=== PATIENT | male | born 1965 | race Caucasian/White ===

== ENCOUNTER → 2022-07-12 09:58 | Outpatient (CLI) | payer OTHER, MEDICAID, SELFPAY ==
[2022-07-12 10:52] LABS: Add Manual Diff / Slide Review NO; Basophils Absolute Auto 0 /uL (0-100); Basophils Percent Auto 0.5 % (0-2); Eosinophils Absolute Auto 200 /uL (0-450); Eosinophils Percent Auto 2.3 % (2-4); Hematocrit 43.2 % (41-53); Hemoglobin 14.6 g/dL (13.5-17.5); Lymphocytes Absolute Auto 2100 /uL (1100-4500); Lymphocytes Percent Auto 21.1 % (25-40); Mean Corpuscular HGB Conc 33.7 % (30-36); Mean Corpuscular Hemoglobin 31.8 PG (26-34); Mean Corpuscular Volume 94.5 fL (80-100); Monocytes Absolute Auto 800 /uL (0-900); Monocytes Percent Auto 7.8 % (3-14); Neutrophils Absolute Auto 6700 /uL (1500-7000); Neutrophils Percent Auto 68.3 % (50-75); Platelet Count 165 X10^3/uL (150-400); Red Blood Cell Count 4.58 X10^6/uL (4.5-5.9); Red Cell Distribution Width 13.2 % (11.6-14.8); White Blood Cell Count 9.8 X10^3/uL (4.5-11.0)
[2022-07-12 11:01] LABS: Hemoglobin A1C% w Est Avg Glu 9.2 % (4.0-6.0)
[2022-07-12 11:09] LABS: Alanine Aminotransferase 24 IU/L (<50); Albumin 4.2 g/dL (3.5-5.0); Albumin Globulin Ratio 1.3 (1.0-2.8); Alkaline Phosphatase 107 U/L (38-126); Aspartate Aminotransferase 26 IU/L (17-59); Bilirubin Total 0.7 mg/dL (0.2-1.3); Blood Urea Nitrogen 17 mg/dL (9-20); Calcium 9.1 mg/dL (8.4-10.2); Carbon Dioxide 28 mmol/L (22-32); Chloride 104 mmol/L (98-107); Cholesterol 209 mg/dL (140-199); Estimated Glomerular Filt Rate > 60 mL/min (>60); Globulin 3.2 g/dL (1.7-4.1); Glucose 179 mg/dL (70-100); HDL Cholesterol 53 mg/dL (40-60); HEMOLYSIS < 15 (0-50); LDL Cholesterol Calculated 142 mg/dL (<100); Potassium 4.7 mmol/L (3.4-5.1); Sodium 138 mmol/L (137-145); Total Protein 7.4 g/dL (6.3-8.2); Triglycerides 70 mg/dL (35-150)
[2022-07-12 11:22] LABS: Creatinine Urine Random 69.2 mg/dL
[2022-07-12 11:39] LABS: Prostate Specific Antigen Scrn 0.453 ng/mL (0.1-4.0)
[2022-07-12 13:52] LABS: Microalbumi Creatinin Ratio Ur 3497.1 ug/mg CR (<30)
== END ==
PROVIDERS: PCP Family Medicine; Referring Provider Family Medicine; Visit Provider Family Medicine
DX: I10 Essential (primary) hypertension (principal); L30.9 Dermatitis, unspecified; R73.9 Hyperglycemia, unspecified; Z12.5 Encounter for screening for malignant neoplasm of prostate
CPT/HCPCS: 36415; 80053; 80061; 82043; 82570; 83036; 84443; 85025; G0103

== ENCOUNTER → 2022-07-23 09:51 | Outpatient (CLI) | payer OTHER, MEDICAID, SELFPAY ==
--- NOTE | 2022-07-23 | DI.CT.S_ITS ---
PROCEDURE: CT CHEST WO CON INDICATIONS: Nicotine dependence, unspecified, uncomplicated TECHNIQUE: Noncontrast 5 mm thick sections acquired from the pulmonary apices to the posterior costophrenic angles. 1 mm lung window, 5 mm thick coronal and sagittal and 7 mm axial MIP reformats were then acquired. For radiation dose reduction, the following was used: automated exposure control, adjustment of mA and/or kV according to patient size. COMPARISON: None. FINDINGS: Image quality: Excellent. Lungs and pleura: There is moderate centrilobular emphysema with an apical predominance. A calcified granuloma is present in the left upper lobe. No suspicious pulmonary nodules or acute airspace opacities. Mediastinum: Heart size is normal. No pericardial effusion. No mediastinal adenopathy by size criteria. Thoracic aorta and central pulmonary arteries are normal in size. Esophagus is normal in caliber. No hiatal hernia. Bones and chest wall: No suspicious bony lesions. No vertebral body compression fractures. No axillary or supraclavicular adenopathy by size criteria. Thyroid gland is unremarkable. Abdomen: Visualized upper abdominal solid organs and bowel loops appear normal in the absence of contrast. IMPRESSION: No suspicious pulmonary nodules or mass lesions. No acute airspace disease. Dictated by: Padmini Burnham M.D. on 07/23/2022 at 12:16 Approved by: Padmini Burnham M.D. on 07/23/2022 at 12:20
== END ==
PROVIDERS: PCP Family Medicine; Referring Provider Family Medicine; Visit Provider Family Medicine
DX: J43.2 Centrilobular emphysema (principal); F17.200 Nicotine dependence, unspecified, uncomplicated
CPT/HCPCS: 71250

== ENCOUNTER → 2022-09-11 09:51 | Outpatient (CLI) | payer OTHER, MEDICAID, SELFPAY ==
--- NOTE | 2022-09-26 16:03 | DIAB.INIT ---
Initial Diabetes Education Assessment Name: Clement Pedro (Sebastian) Date: 09/11/22 Time: 11a-1210p Dx: Type II diabetes Provider: Torin Garciaie presents for initial diabetes education. Recent hgA1c of 9.2 07/2022. Reports he recently found out he had Dm from his oral surgeon. States he has a scheduled procedure, however the surgeon is requiring a HgA1c under 7%. States he has had increased stress recently with the loss of 2 of his 3 pets. Finances and dealing with dental work are contributing factors. Feels he is having a difficult time managing his recent changed demeanor. Feels short tempered at times. Has culinary background. Feels diabetes has ruined his love for food. States he has gone online and to the library to learn about how to manage DM. Feels all sources are confusing because they contradict one another. Recently changed to whole grains, ie brown rice, pasta, bread. Though feels high fiber diet has made him constipated. Has quit eating his favorite food, chips and a soda. If eating out fast food, tries to make better choices, ie grilled chicken sandwich. Poor dentition. Trying to get dentures, financial barriers in insurance coverage and dental options. Overall, Sebastian reports feeling very frustrated. States he has questions for PCP regarding anxiety med. he is not currently on portal. Anthropometrics: Ht: 6' Wt: 178# at PCP today Weight history: reports -10# over one month due to diet changes. Physical Activity: Active with work, cares for a farm. Considering gym membership but more for social aspect. Self-Monitoring Blood Glucose: Plans to pickle cutter meter today. Diabetes Medications: Metformin 1000mg (rx to increase to BID) Farxiga 10mg Pertinent Labs: HgA1c 9.2% 07/2022 Past Medical History: (Last Updated 09/11/22 @ 09:59 by Robert Harkins MD) Hyperlipidemia Hypertension Intervention: This participant was very receptive. Provided appropriate educational handouts. Discussed the following topics: Completed intake assessment. Discussed barriers to care. Brief pathophysiology of type 2 diabetes HgA1c, its correlation to blood glucose numbers, and rationale for goal especially with surgery and recovery Importance of self-monitoring, how often, and when to check. Suggested checking at different times to evaluate meals General recommended servings for carbohydrates at meals and snacks Role of physical activity Stress impact on BG management Signing up for IH portal to contact provider prn Created SMART goals for patient self-care and success. Goals: Start checking FBG and 1-2 hour pc dinner Sign up for IH portal Follow-up: PADDY KENNEDY follow-up in 3-4 weeks Katherine Nguyen RDN, [facility] Certified Diabetes Care and Tobacco Conditioner P: [phone] Thank you for this referral
== END ==
PROVIDERS: PCP Family Medicine; Referring Provider Family Medicine; Visit Provider Family Medicine
DX: E11.9 Type 2 diabetes mellitus without complications (principal); Z79.84 Long term (current) use of oral hypoglycemic drugs; Z71.3 Dietary counseling and surveillance
CPT/HCPCS: G0108

== ENCOUNTER → 2022-10-29 07:54 | Outpatient (CLI) | payer OTHER, MEDICAID, SELFPAY ==
[2022-10-29 08:27] LABS: Hemoglobin A1C% w Est Avg Glu 7.2 % (4.0-6.0)
[2022-10-29 08:53] LABS: Cholesterol 136 mg/dL (140-199); HDL Cholesterol 65 mg/dL (40-60); LDL Cholesterol Calculated 62 mg/dL (<100); Triglycerides 43 mg/dL (35-150)
[2022-10-29 08:54] LABS: Creatinine Urine Random 39.2 mg/dL
[2022-10-29 09:02] LABS: Microalbumi Creatinin Ratio Ur 316.3 ug/mg CR (<30); Microalbumin Urine Random 12.4 mg/dL (0-1.6)
== END ==
PROVIDERS: PCP Family Medicine; Referring Provider Family Medicine; Visit Provider Family Medicine
DX: E11.9 Type 2 diabetes mellitus without complications (principal); E78.5 Hyperlipidemia, unspecified; I10 Essential (primary) hypertension; R80.9 Proteinuria, unspecified
CPT/HCPCS: 36415; 80061; 82043; 82570; 83036

== ENCOUNTER → 2022-11-13 13:27 | Outpatient (CLI) | payer OTHER, MEDICAID, SELFPAY ==
[2022-11-13 14:23] LABS: Hematocrit 40.8 % (41-53); Hemoglobin 13.7 g/dL (13.5-17.5)
[2022-11-13 14:28] LABS: BUN Creatinine Ratio 41.1 (6-22); Blood Urea Nitrogen 37 mg/dL (9-20); Calcium 9.5 mg/dL (8.4-10.2); Carbon Dioxide 27 mmol/L (22-32); Chloride 100 mmol/L (98-107); Estimated Glomerular Filt Rate > 60 mL/min (>60); Glucose 133 mg/dL (70-100); HEMOLYSIS < 15 (0-50); Potassium 4.6 mmol/L (3.4-5.1); Sodium 136 mmol/L (137-145)
[2022-11-13 15:54] LABS: Creatinine Urine Random 27.3 mg/dL; Protein (Total) Urine Random 22 mg/dL (0-12)
[2022-11-13 15:58] LABS: Microalbumin Urine Random 7.4 mg/dL (0-1.6)
--- NOTE | 2022-11-13 16:01 | DIAB.FU ---
Follow-up Diabetes Education Assessment Name: Clement Pedro (Sebastian) Date: 11/13/22 Time: 3-345p Dx: Type II Diabetes Sebastian presents for DM follow-up. States he has made drastic changes to his diet. Mostly on a liquid protein shake diet with one balanced meal at dinner. Brings several protein powders for review today. All are low in CHO 20g or less, protein of 25g or less, sodium 300mg or less per serving. Today he wants to know if this is ok for diabetes. Sees etymology professor and plans to discuss this meal plan at follow-up visit with specialist. In terms of kidney health, current regimen does not seem excessive in protein or sodium. Reports improved numbness in LE. Reports he has completed his dental work and healing. States his last HgA1c for dental procedure was 7.2%, much improved. Current diet is 3 shakes per day and one meal (fish or chx with 1/2c brown rice and veggies). States this is not a cheap diet or particularly enjoyable, but would like to continue for now with consideration for adding lunch as a whole food option. States he has lost 6# since starting this diet and BG have improved. Has questions regarding BG goals and HgA1c. Endorses adequate fiber with shakes, berries, nuts, and seeds. Reports improved regular BM. Denies any dizziness or light headed feeling. Not checking BP at home, but is taking BP meds regularly. Physical Activity: Active with work, cares for a farm. Considering gym membership but more for social aspect. Self-Monitoring Blood Glucose: Checking throughout the day. Reports previous to liquid diet changes BG range 143-168mg/dl. Recently 128-143mg/dl. Diabetes Medications: Metformin 1000mg (rx to increase to BID)- not discussed this visit Farxiga 10mg Pertinent Labs: Reported 7.2% recently HgA1c 9.2% 07/2022 Past Medical History: (Last Updated 09/11/22 @ 09:59 by Robert Harkins MD) Hyperlipidemia Hypertension Intervention: This participant was very receptive. Provided appropriate educational handouts. Discussed the following topics: Recent blood sugar results and trends ADA and AACE goals for BG and HgA1c BP and BG impact on kidney health Importance of consideration for kidney health with supplements/pro shakes Sustainability of diet and future options Review of general nutrition recommendations and current intake Created SMART goals for patient self-care and success. Goals: Start checking FBG and 1-2 hour pc dinner- met Sign up for IH portal - met Discuss current diet with nephrology- new consider adding lunch as whole food option- new Follow-up: PADDY KENNEDY follow-up in 2 months. Overall Sebastian is doing well with BG management. Would like to f/u in 2 months for check-in and potential diet change options. Katherine Nguyen, PADDY, [facility] Certified Diabetes Care and Assistant Football Coach P: [phone] Thank you for this referral
[2022-11-15 04:59] LABS: Complement C3 103 mg/dL (82-167)
[2022-11-15 14:32] LABS: Free Kappa Lt Chains, Serum 26.1 mg/L (3.3-19.4); Free Lambda Lt Chains,Serum 20.8 mg/L (5.7-26.3)
[2022-11-16 03:41] LABS: Complement Total CH50 > 60 U/mL (>41)
[2022-11-16 13:21] LABS: Alpha-1 Globulin, Ur 3.1 % (.); Beta Globulin, Ur 6.1 % (.); Gamma Globulin, Ur 3.6 % (.); M-Spike % Not Observed % (Not Observed); Urine Total Protein 11.1 mg/dL (Not Estab.)
[2022-11-16 16:11] LABS: Albumin 3.7 g/dL (2.9-4.4); Alpha-1-Globulin 0.2 g/dL (0.0-0.4); Alpha-2-Globulin 0.8 g/dL (0.4-1.0); Gamma Globulin 0.9 g/dL (0.4-1.8); Globulin Total 2.7 g/dL (2.2-3.9); Immunoglobulin A, Serum 128 mg/dL (90-386); Immunoglobulin G,Serum 788 mg/dL (603-1613); Immunoglobulin M, Serum 91 mg/dL (20-172); Protein, Total 6.4 g/dL (6.0-8.5)
== END ==
PROVIDERS: PCP Family Medicine; Referring Provider Internal Medicine Nephrology; Visit Provider Internal Medicine Nephrology
DX: I10 Essential (primary) hypertension (principal); E11.22 Type 2 diabetes mellitus with diabetic chronic kidney disease; N18.2 Chronic kidney disease, stage 2 (mild); R80.9 Proteinuria, unspecified; Z79.84 Long term (current) use of oral hypoglycemic drugs; Z71.3 Dietary counseling and surveillance
CPT/HCPCS: 36415; 80048; 82043; 82570; 82784; 83516; 83883; 84155; 84156; 84165; 84166; 85014; 85018; 86160; 86162; 86334; 86335; G0108

== ENCOUNTER → 2023-01-15 09:19 | Outpatient (CLI) | payer OTHER, MEDICAID, SELFPAY ==
--- NOTE | 2023-01-31 08:55 | DIAB.FU ---
Follow-up Diabetes Education Assessment Name: Clement Pedro (Sebastian) Date: 01/15/23 Time: 930-10a Dx: Type II Diabetes Sebastian presents for DM follow-up. Reports no changes to diet. Continues utilizing shakes and lower carb meals to manage DM. Primarily has questions regarding Dm meds today, specifically GLP1 RA oral and injections and other med options. 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 Self-Monitoring Blood Glucose: Reports continued SMBG in goal with readings under 150 mg/dl through the day. Diabetes Medications: Metformin 1000mg Farxiga 10mg Ozempic rx for up to 0.5mg weekly Pertinent Labs: HgA1c 9.2% 07/2022 7.2% 10/2022 Past Medical History: (Last Updated 09/11/22 @ 09:59 by Robert Harkins MD) Hyperlipidemia Hypertension Intervention: This participant was very receptive. Provided appropriate educational handouts. Discussed the following topics: Recent blood sugar results and trends Medication management: different options oral vs injections, affordability, SE, actions Review of general nutrition recommendations and current intake Created SMART goals for patient self-care and success. Goals: Discuss current diet with nephrology- met consider adding lunch as whole food option- in progress Follow-up: PADDY KENNEDY follow-up in Jun due to this [facility] leave. Provided resources for support in the interim. Katherine Nguyen RDN, [facility] Certified Diabetes Care and [employer] [place]ta Setter P: [phone] Thank you for this referral
== END ==
PROVIDERS: PCP Family Medicine; Referring Provider Family Medicine; Visit Provider Family Medicine
DX: E11.9 Type 2 diabetes mellitus without complications (principal); Z79.84 Long term (current) use of oral hypoglycemic drugs; Z79.85 Long-term (current) use of injectable non-insulin antidiabetic drugs; Z71.3 Dietary counseling and surveillance
CPT/HCPCS: G0108

== ENCOUNTER → 2023-05-23 09:54 | Outpatient (CLI) | payer OTHER, MEDICAID, SELFPAY ==
[2023-05-23 10:15] LABS: Hematocrit 39.4 % (41-53); Hemoglobin 13.6 g/dL (13.5-17.5)
[2023-05-23 10:29] LABS: Hemoglobin A1C% w Est Avg Glu 7.4 % (4.0-6.0)
[2023-05-23 10:41] LABS: BUN Creatinine Ratio 31.5 (6-22); Blood Urea Nitrogen 23 mg/dL (9-20); Carbon Dioxide 27 mmol/L (22-32); Chloride 104 mmol/L (98-107); Estimated Glomerular Filt Rate > 60 mL/min (>60); Glucose 164 mg/dL (80-110); HEMOLYSIS < 15 (0-50); Potassium 4.6 mmol/L (3.4-5.1); Sodium 136 mmol/L (137-145)
[2023-05-23 10:51] LABS: Creatinine Urine Random 135.8 mg/dL
[2023-05-23 11:48] LABS: Microalbumi Creatinin Ratio Ur 2724.5 ug/mg CR (<30)
== END ==
PROVIDERS: PCP Family Medicine; Referring Provider Internal Medicine Nephrology; Visit Provider Internal Medicine Nephrology
DX: I10 Essential (primary) hypertension (principal); E11.22 Type 2 diabetes mellitus with diabetic chronic kidney disease; N18.2 Chronic kidney disease, stage 2 (mild); R80.9 Proteinuria, unspecified; E78.5 Hyperlipidemia, unspecified; E11.9 Type 2 diabetes mellitus without complications
CPT/HCPCS: 36415; 80048; 82043; 82570; 83036; 85014; 85018

== ENCOUNTER 2023-10-08 16:56 | Emergency (ER) | payer OTHER, MEDICAID, SELFPAY ==
[2023-10-08] VITALS (7 sets, daily range): BP systolic 100–143; BP diastolic 62–65; PULSE 56–70; RESP 18–20; TEMP 36.7; O2SAT 99–100
[2023-10-08 17:47] LABS: Add Manual Diff / Slide Review NO; Basophils Absolute Auto 0 /uL (0-100); Basophils Percent Auto 0.1 % (0-2); Eosinophils Absolute Auto 0 /uL (0-450); Eosinophils Percent Auto 0.3 % (2-4); Hematocrit 30.5 % (41-53); Hemoglobin 10.5 g/dL (13.5-17.5); Lymphocytes Absolute Auto 700 /uL (1100-4500); Lymphocytes Percent Auto 7.3 % (25-40); Mean Corpuscular HGB Conc 34.4 % (30-36); Mean Corpuscular Hemoglobin 30.6 PG (26-34); Monocytes Absolute Auto 900 /uL (0-900); Monocytes Percent Auto 9.1 % (3-14); Neutrophils Absolute Auto 8000 /uL (1500-7000); Neutrophils Percent Auto 83.2 % (50-75); Platelet Count 217 X10^3/uL (150-400); Red Blood Cell Count 3.43 X10^6/uL (4.5-5.9); Red Cell Distribution Width 12.9 % (11.6-14.8); White Blood Cell Count 9.6 X10^3/uL (4.5-11.0)
[2023-10-08 17:55] LABS: Alanine Aminotransferase 29 IU/L (<50); Albumin 3.3 g/dL (3.5-5.0); Albumin Globulin Ratio 1.1 (1.0-2.8); Alkaline Phosphatase 156 U/L (38-126); Aspartate Aminotransferase 23 IU/L (17-59); BUN Creatinine Ratio 69.2 (6-22); Bilirubin Total 0.4 mg/dL (0.2-1.3); Blood Urea Nitrogen 63 mg/dL (9-20); Calcium 8.5 mg/dL (8.4-10.2); Carbon Dioxide 29 mmol/L (22-32); Chloride 100 mmol/L (98-107); Estimated Glomerular Filt Rate > 60 mL/min (>60); Globulin 2.9 g/dL (1.7-4.1); Glucose 420 mg/dL (80-110); HEMOLYSIS < 15 (0-50); Lipase 90 U/L (23-300); Potassium 4.9 mmol/L (3.4-5.1); Sodium 133 mmol/L (137-145); Total Protein 6.2 g/dL (6.3-8.2)
--- NOTE | 2023-10-08 20:27 | ED_ITS ---
HPI - Recheck/Abnormal Lab/Rx General Chief Complaint: Recheck/Abnormal Lab/Rx Stated Complaint: sent by [facility] Oncology Time Seen by Provider: 10/08/23 20:21 Source: patient Mode of arrival: Ambulatory History of Present Illness HPI narrative: Patient is a 58-year-old male. Receiving chemotherapy and radiation and he was also on steroids. He has no history of diabetes. Had labs drawn today in preparation for a PET scan and it was noted that his glucose was greater than 500. He stated that he was told to come to the emergency department by his oncologist for a ?infusion? he did receive radiation today. He denies any other symptoms. Related Data Home Medications Medication Instructions Recorded Confirmed spironolactone 50 mg tablet 50 mg PO DAILY 12/20/22 06/04/23 Previous Rx's Medication Instructions Recorded glucometer #1 ea 09/11/22 lancets and applicator #100 ea 09/11/22 losartan 50 mg tablet See Rx Instructions .Route 09/11/22 .COMPLEX #180 tabs test strips #100 ea 09/11/22 hydroxyzine HCl 25 mg tablet See Rx Instructions .Route 02/04/23 .COMPLEX #60 tabs atorvastatin 40 mg tablet (Lipitor) 40 mg PO BEDTIME #90 tabs 03/18/23 mirtazapine 15 mg tablet (Remeron) 15 mg PO BEDTIME #60 tabs 04/29/23 semaglutide 7 mg tablet (Rybelsus) 7 mg PO DAILY #90 tabs 06/04/23 metformin 1,000 mg tablet See Rx Instructions .Route 08/07/23 .COMPLEX #180 tabs Allergies Allergy/AdvReac Type Severity Reaction Status Date / Time No Known Drug Allergies Allergy Verified 10/08/23 17:24 Review of Systems Review of Systems ROS Unobtainable: All systems reviewed & are unremarkable except as noted in HPI and below Patient History Medical History Hyperlipidemia Hypertension Family History (Updated 07/30/22 @ 20:53 by Meggan Natarajan) Father Diabetes mellitus Hypertension Hyperlipidemia Mother Diabetes mellitus Social History Smoking Status: Current every day smoker Smoking Status: Current every day smoker Exam Initial Vital Signs Initial Vital Signs: Vital Signs Temperature 98.1 F 10/08/23 17:24 Pulse Rate 67 10/08/23 17:24 Respiratory Rate 18 10/08/23 17:24 Blood Pressure 143/65 H 10/08/23 17:24 Pulse Oximetry 99 10/08/23 17:24 Oxygen Delivery Method Room Air 10/08/23 17:24 Const General: cooperative and comfortable Resp Effort & Inspection: normal respiratory effort Cardio Rate: regular rate Neuro General: patient alert, patient awake and moves all extremities Course Orders Ordered: ED Orders 10/08/23 17:33 Complete Blood Count AUTO DIFF Stat Comprehensive Metabolic Panel Stat Lipase Stat Prothrombin Time INR Stat Discontinued Medications Sodium Chloride (Normal Saline 0.9%) 1,000 mls @ 1,000 mls/hr IV BOLUS ONE Stop: 10/08/23 21:28 Last Infusion: 10/08/23 21:49 Dose: Infused Documented By: Admin: 10/08/23 20:43 Dose: 1,000 mls/hr Documented By: RADHA Ondansetron HCl (Ondansetron 4 Mg/2 Ml Inj) 4 mg IV NOW PRN PRN Reason: Nausea And Vomiting Ondansetron HCl (Ondansetron 4 Mg Odt) 4 mg PO NOW PRN PRN Reason: Nausea And Vomiting Vital Signs Vital signs: Vital Signs - 8 hr 10/08/23 20:44 10/08/23 20:46 10/08/23 20:46 Pulse Rate 68 67 Respiratory Rate Blood Pressure 100/62 Pulse Oximetry 100 99 Oxygen Delivery Method 10/08/23 21:00 10/08/23 21:30 10/08/23 21:45 Pulse Rate 56 L 62 Respiratory Rate Blood Pressure 123/65 Pulse Oximetry 99 99 Oxygen Delivery Method 10/08/23 21:45 10/08/23 21:46 Pulse Rate 64 70 Respiratory Rate 20 Blood Pressure 123/65 Pulse Oximetry 99 99 Oxygen Delivery Method Room Air MDM - Recheck/Abnormal Lab/Rx Lab Data Attestation: I reviewed the patient's lab results. 10/08/23 17:33 10/08/23 17:33 Labs: Lab Results 10/08/23 Range/Units 17:33 WBC 9.6 (4.5-11.0) X10^3/uL RBC 3.43 L (4.5-5.9) X10^6/uL Hgb 10.5 L (13.5-17.5) g/dL Hct 30.5 L (41-53) % MCV 89.0 (80-100) fL MCH 30.6 (26-34) PG MCHC 34.4 (30-36) % RDW 12.9 (11.6-14.8) % Plt Count 217 (150-400) X10^3/uL Neut % (Auto) 83.2 H (50-75) % Lymph % (Auto) 7.3 L (25-40) % [place] % (Auto) 9.1 (3-14) % Eos % (Auto) 0.3 L (2-4) % Baso % (Auto) 0.1 (0-2) % Neut # (Auto) 8000 H (5136-7660) /uL Lymph # (Auto) 700 L (4269-4604) /uL [place] # (Auto) 900 (0-900) /uL Eos # (Auto) 0 (0-450) /uL Baso # (Auto) 0 (0-100) /uL PT 11.0 (9.4-12.5) SECONDS INR 1.0 (0.9-1.3) Sodium 133 L (137-145) mmol/L Potassium 4.9 (3.4-5.1) mmol/L Chloride 100 (98-107) mmol/L Carbon Dioxide 29 (22-32) mmol/L BUN 63 H (9-20) mg/dL Creatinine 0.91 (0.66-1.25) mg/dL Estimated GFR > 60 (>60) mL/min BUN/Creatinine Ratio 69.2 H (6-22) Glucose 420 H (80-110) mg/dL Calcium 8.5 (8.4-10.2) mg/dL Total Bilirubin 0.4 (0.2-1.3) mg/dL AST 23 (17-59) IU/L ALT 29 (<50) IU/L Alkaline Phosphatase 156 H (38-126) U/L Total Protein 6.2 L (6.3-8.2) g/dL Albumin 3.3 L (3.5-5.0) g/dL Globulin 2.9 (1.7-4.1) g/dL Albumin/Globulin Ratio 1.1 (1.0-2.8) Lipase 90 (23-300) U/L MDM Narrative Medical decision making narrative: Patient is hyperglycemic but not in DKA. Tolerating oral intake. I suspect that the hyperglycemia is most likely related to the steroids that he is taking. He did receive fluids here in the ER. There was no indication for admission to the hospital. He would like to wait and talk with his primary doctor and also his oncologist about potentially starting insulin as he was told that maybe he needed to be on this when they started him on steroids. Will discharge patient home to follow-up with his outpatient providers. Discharge Plan Departure Patient Disposition: Home Clinical Impression: Hyperglycemia Instructions: DI for Hyperglycemia -- Adult Activity Restrictions/Additional Instructions: Recommend that you continue to take all of your medications as directed and talk with your oncologist and primary doctor about potentially needing to start on insulin. Return to the emergency department for new or worsening symptoms. Prescriptions: No Action (DME) glucometer See Rx Instructions .Route .MEDSUPPLY Qty: 1 0RF Rx Instructions: As directed (DME) lancets and applicator See Rx Instructions .Route .MEDSUPPLY Qty: 100 5RF Rx Instructions: use to check blood glucose daily (DME) test strips See Rx Instructions .Route .MEDSUPPLY Qty: 100 5RF Rx Instructions: use to check blood glucose daily and as need for feeling of low or high blood glucose. hydroxyzine HCl 25 mg tablet See Rx Instructions .ROUTE .COMPLEX Qty: 60 0RF Dose Instruction: TAKE 1 TABLET BY MOUTH TWICE DAILY NEEDED FOR ANXIETY Rx Instructions: TAKE 1 TABLET BY MOUTH TWICE DAILY NEEDED FOR ANXIETY atorvastatin [Lipitor] 40 mg tablet 40 mg PO BEDTIME Qty: 90 2RF mirtazapine [Remeron] 15 mg tablet 15 mg PO BEDTIME Qty: 60 2RF metformin 1,000 mg tablet See Rx Instructions .ROUTE .COMPLEX Qty: 180 3RF Dose Instruction: TAKE 1 TABLET DAILY FOR 1 WEEK THEN INCREASE TO 2 TABLETS DAILY WITH FOOD. Rx Instructions: 2 TABLETS DAILY WITH FOOD. losartan 50 mg tablet See Rx Instructions .ROUTE .COMPLEX Qty: 180 3RF Dose Instruction: TAKE 1 TABLET BY MOUTH DAILY. Rx Instructions: TAKE 2 TABLETs BY MOUTH DAILY. spironolactone 50 mg tablet 50 mg PO DAILY Rybelsus 7 mg tablet 7 mg PO DAILY Qty: 90 3RF Rx Instructions: A1c not completely managed with current meds. Referrals: Robert Harkins MD [Primary Care Provider] - Stand Alone Forms: Patient Portal/API
[2023-10-08] MEDS: SODIUM CHLORIDE 0.9% 1,000 ML 1000 ML IV (20:43)
== END 2023-10-08 22:06 | disposition home or self-care (01) ==
PROVIDERS: Emergency Medicine; Emergency Provider Emergency Medicine; PCP Family Medicine
DX: R73.9 Hyperglycemia, unspecified (principal)
CPT/HCPCS: 36415; 80053; 83690; 85025; 85610; 99283; 99284

== ENCOUNTER 2023-10-15 14:29 | Emergency (ER) | payer OTHER, MEDICAID, SELFPAY ==
[2023-10-15] VITALS (16 sets, daily range): BP systolic 118–147; BP diastolic 62–78; PULSE 71–90; RESP 14–26; TEMP 36.6–37.4; O2SAT 93–97; BMI 21.2
--- NOTE | 2023-10-15 14:58 | DI.RAD.S_ITS ---
PROCEDURE: XR SOFT TISSUE NECK INDICATIONS: stridor, cancer TECHNIQUE: 2 views of the neck were acquired. COMPARISON: [facility], CT, CT SOFT TISSUE NECK WITH CONTRAST, 07/30/2023, 11:39. FINDINGS: Airway: The airway appears patent. Soft tissues: Prevertebral soft tissues are normal in thickness. The epiglottis is thickened.. No soft tissue gas. Bones: No suspicious bony lesions. Visualized cervical spine is normally aligned. IMPRESSION: Thickened epiglottis. Epiglottitis is not excluded. Dictated by: Jessica Hilario MD, PhD on 10/15/2023 at 15:54 Approved by: Jessica Hilario MD, PhD on 10/15/2023 at 15:55
--- NOTE | 2023-10-15 15:01 | DI.CT.S_ITS ---
PROCEDURE: CT SOFT TISSUE NECK W CON INDICATIONS: stridor, inspiratory; known cancer TECHNIQUE: After the administration of intravenous contrast, 3.0 mm axial sections acquired from the sella to the aortic arch. Additional oblique axial 3.0 mm sections acquired through the pharynx. 3 mm thick coronal and sagittal reformats were generated. For radiation dose reduction, the following was used: automated exposure control. COMPARISON: [facility], CT, CT SOFT TISSUE NECK WITH CONTRAST, 07/30/2023, 11:39. FINDINGS: Image quality: Excellent. Lymph nodes: Prominent bilateral level 2 neck lymph nodes noted which do not meet pathologic size criteria. 0.8 centimeter short axis left level 2 B neck lymph node which demonstrates central necrosis. Vessels: Visualized vasculature appears patent. Neck spaces: The oropharynx and nasopharynx demonstrate no mucosal lesions. Infiltrating mass involving the epiglottis, aryepiglottic folds, laryngeal mucosa and vocal cords decreased in size compared to July 30, 2023 compatible with response to therapy. There is a 1.4 centimeter in diameter fluid collection in the anterior right laryngeal mucosa which lacks peripheral enhancement.Extramucosal spaces appear unremarkable. Glands: The parotid and submandibular glands appear normal. Thyroid gland is normal. Miscellaneous: Visualized brain and orbits appear normal. Lung apices appear clear. Centrilobular emphysema in the visualized lungs. Superficial soft tissues appear normal. Left-sided PICC line. Bones: No suspicious bony lesions. Visualized sinuses and mastoids appear unremarkable. 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 1.4 centimeter fluid collection in the anterior right laryngeal mucosa compatible with tissue necrosis. No lymphadenopathy based on size criteria. 8 millimeter short axis centrally necrotic left level 2 B neck lymph node noted. Metastatic lymphadenopathy not completely excluded. Dictated by: Jessica Hilario MD, PhD on 10/15/2023 at 16:20 Approved by: Jessica Hilario MD, PhD on 10/15/2023 at 16:44
[2023-10-15] MEDS: RACEPINEPHRINE 0.5 ML NEB INH ×2 (15:05→16:58)
[2023-10-15 15:07] LABS: Add Manual Diff / Slide Review NO; Basophils Absolute Auto 0 /uL (0-100); Basophils Percent Auto 0.9 % (0-2); Eosinophils Absolute Auto 0 /uL (0-450); Eosinophils Percent Auto 0.5 % (2-4); Hematocrit 32.7 % (41-53); Hemoglobin 11.2 g/dL (13.5-17.5); Lymphocytes Absolute Auto 400 /uL (1100-4500); Mean Corpuscular HGB Conc 34.3 % (30-36); Mean Corpuscular Hemoglobin 30.9 PG (26-34); Mean Corpuscular Volume 90.1 fL (80-100); Monocytes Absolute Auto 500 /uL (0-900); Monocytes Percent Auto 11.4 % (3-14); Neutrophils Absolute Auto 3400 /uL (1500-7000); Neutrophils Percent Auto 77.2 % (50-75); Platelet Count 115 X10^3/uL (150-400); Red Blood Cell Count 3.63 X10^6/uL (4.5-5.9); Red Cell Distribution Width 13.2 % (11.6-14.8); White Blood Cell Count 4.4 X10^3/uL (4.5-11.0)
[2023-10-15] MEDS: DEXAMETHASONE 10 MG/ML VIAL IV (15:11)
[2023-10-15] MEDS: ALBUTEROL/IPRATROPIUM 3 ML AMPUL INH (15:16)
[2023-10-15 15:19] LABS: Alanine Aminotransferase 24 IU/L (<50); Albumin 3.4 g/dL (3.5-5.0); Albumin Globulin Ratio 1.1 (1.0-2.8); Alkaline Phosphatase 114 U/L (38-126); Aspartate Aminotransferase 25 IU/L (17-59); BUN Creatinine Ratio 54.5 (6-22); Bilirubin Total 0.8 mg/dL (0.2-1.3); Blood Urea Nitrogen 36 mg/dL (9-20); Calcium 8.7 mg/dL (8.4-10.2); Carbon Dioxide 32 mmol/L (22-32); Chloride 101 mmol/L (98-107); Estimated Glomerular Filt Rate > 60 mL/min (>60); Globulin 3.2 g/dL (1.7-4.1); Glucose 196 mg/dL (80-110); HEMOLYSIS < 15 (0-50); Potassium 4.3 mmol/L (3.4-5.1); Sodium 139 mmol/L (137-145); Total Protein 6.6 g/dL (6.3-8.2)
[2023-10-15] MEDS: PIPERACILLIN/TAZO 4.5 GM in SODIUM CHLORIDE 0.9% 100 ML IV (15:20)
--- NOTE | 2023-10-15 15:20 | ED.GENADULT ---
HPI - General Adult General Chief complaint: Shortness of Breath/Dyspnea Stated complaint: difficulty breathing, talking Time Seen by Provider: 10/15/23 14:47 History of Present Illness HPI narrative: 58-year-old male with history of diabetes, hypertension, hyperlipidemia, on chemotherapy and radiation for reported HEENT cancer presents with shortness of breath. Patient notes he was sent from radiation today with shortness of breath but is not sure what kind of cancer he has. He is DNR/DNI. He is very firm about this, fully understanding he could rapidly without airway control. He notes pain in his neck and denies fever. He feels increasingly short of breath in the last several days with difficulty breathing and voice changes. No posterior neck pain, photophobia, headache, chest pain, trismus, drooling or bleeding. He is on oxycodone. I spoke with his Oncologist on phone, Dr. Ellis; he has SCC supraglottic laryngeal cancer. It has progressed to the point that ENT was involved and trach was strictly recommended. He declined this. He has been getting chemo/radiation. He refuses laryngectomy. He is on standing dexamethasone but completely stopped this last week. We are concerned his laryngeal edema is worsening in this setting. Today, he seemed borderline hypotensive, tachycardic in clinic. They agree there is no other family. Oncologist # is [phone]. This patient was seen in a time of substantial ER overcrowding in the setting of understanding. He was seen as quickly as possible by myself in the setting of multiple critically ill patients. Related Data Home Medications Medication Instructions Recorded Confirmed spironolactone 50 mg tablet 50 mg PO DAILY 12/20/22 06/04/23 Previous Rx's Medication Instructions Recorded glucometer #1 ea 09/11/22 losartan 50 mg tablet See Rx Instructions .Route 09/11/22 .COMPLEX #180 tabs hydroxyzine HCl 25 mg tablet See Rx Instructions .Route 02/04/23 .COMPLEX #60 tabs atorvastatin 40 mg tablet (Lipitor) 40 mg PO BEDTIME #90 tabs 03/18/23 mirtazapine 15 mg tablet (Remeron) 15 mg PO BEDTIME #60 tabs 04/29/23 semaglutide 7 mg tablet (Rybelsus) 7 mg PO DAILY #90 tabs 10/24/23 metformin 1,000 mg tablet See Rx Instructions .Route 08/07/23 .COMPLEX #180 tabs blood sugar diagnostic (True #100 strips 10/11/23 Metrix Glucose Test Strip) lancets 33 gauge (TRUEplus Lancets) #100 ea 10/11/23 Allergies Allergy/AdvReac Type Severity Reaction Status Date / Time No Known Drug Allergies Allergy Verified 10/08/23 17:24 Review of Systems Review of Systems Narrative: Constitutional: no fever, no chills Eyes: no visual disturbance, no discharge Ears, Nose, Mouth, Throat: no rhinorrhea, + sore throat Cardiovascular: no chest pain, no palpitations Respiratory: + cough, shortness of breath Gastrointestinal: no abdominal pain, no vomiting, no diarrhea Genitourinary: no dysuria, no hematuria Musculoskeletal: no back pain, no neck stiffness Skin: no rash, no wound Neurological: no focal weakness, no focal numbness Patient History Medical History Hyperlipidemia Hypertension Family History (Updated 07/30/22 @ 20:53 by Meggan Nataarjan) Father Diabetes mellitus Hypertension Hyperlipidemia Mother Diabetes mellitus Social History Smoking Status: Current every day smoker Smoking Status: Current every day smoker tobacco type: cigarettes Substance Use Type: does not use Exam Narrative Exam Narrative: Const: no acute distress, + toxic and cachectic appearing; remains calm, pleasant, speaking in a whisper Eyes: PERRLA, EOMI ENT: uvula midline. He has prominent inspiratory stridor. No pain on palpation of throat. No pus or exudate. No drooling. No trismus. Neck: supple, non-tender Resp: no respiratory distress, clear to auscultation bilaterally Card: regular rate and rhythm, no murmurs Abd: non tender diffusely, no rigidity or rebound or guarding Back: no T or L spine tenderness, no CVA tenderness bilaterally Extrem: no deformities, no swelling bilateral lower extremities Neuro: ANOx4, casing operator 2-12 intact, intact sensation and strength all extremities, normal coordination Skin: no rash, warm and dry Initial Vital Signs Initial Vital Signs: Vital Signs Temperature 99.4 F 10/15/23 14:33 Pulse Rate 90 10/15/23 14:33 Respiratory Rate 18 10/15/23 14:33 Blood Pressure 118/63 10/15/23 14:33 Pulse Oximetry 97 10/15/23 14:33 Oxygen Delivery Method Room Air 10/15/23 14:33 Course Course Course Narrative: This presentation is highly concerning for imminent airway collapse in a patient with known laryngeal cancer who is critically ill. Patient is very clear about his wishes, demonstrated capacity to me, denying any local family, stating he in no way at any time wants to be intubated or have chest compressions. He fully understands he could from this. I am pursuing aggressive workup and treatment with dexamethasone, racemic epinephrine, duo nebs, antibiotics, neck x-ray to be followed by CT, labs and blood cultures and very closely reassessing. I am doing everything I can to help prevent further decompensation. My hope is that he improves on dexamethasone. It is most likely that this stridor is due to his underlying cancer worsening precipitated by stopping steroids recently, though I am giving him broad antibiotics in case of concurrent infection as well. He is neurovascularly intact currently. Chemistry appears grossly baseline. Hyperglycemia noted. CBC with leukopenia in the setting of known chemotherapy, anemia improved from prior, thrombocytopenia present though above 100. Radiology review of imaging below, which I agree with on my independent review: CXR: FINDINGS: Surgical changes and devices: None. Lungs and pleura: Lungs are clear. No pleural effusions or pneumothorax. Mediastinum: Mediastinal contours appear normal. Heart size is normal. Bones and chest wall: No suspicious bony lesions. Overlying soft tissues appear unremarkable. IMPRESSION: No acute cardiopulmonary abnormality is seen. Dictated by: Jessica Hilario MD, PhD on 10/15/2023 at 15:55 Neck XR: FINDINGS: Airway: The airway appears patent. Soft tissues: Prevertebral soft tissues are normal in thickness. The epiglottis is thickened.. No soft tissue gas. Bones: No suspicious bony lesions. Visualized cervical spine is normally aligned. IMPRESSION: Thickened epiglottis. Epiglottitis is not excluded. Dictated by: Jessica Hilario MD, PhD on 10/15/2023 at 15:54 Note this finding in my assessment is more likely related to patient's cancer. Adding vancomycin however. CT: FINDINGS: Image quality: Excellent. Lymph nodes: Prominent bilateral level 2 neck lymph nodes noted which do not meet pathologic size criteria. 0.8 centimeter short axis left level 2 B neck lymph node which demonstrates central necrosis. Vessels: Visualized vasculature appears patent. Neck spaces: The oropharynx and nasopharynx demonstrate no mucosal lesions. Infiltrating mass involving the epiglottis, aryepiglottic folds, laryngeal mucosa and vocal cords decreased in size compared to July 30, 2023 compatible with response to therapy. There is a 1.4 centimeter in diameter fluid collection in the anterior right laryngeal mucosa which lacks peripheral enhancement.Extramucosal spaces appear unremarkable. Glands: The parotid and submandibular glands appear normal. Thyroid gland is normal. Miscellaneous: Visualized brain and orbits appear normal. Lung apices appear clear. Centrilobular emphysema in the visualized lungs. Superficial soft tissues appear normal. Left-sided PICC line. Bones: No suspicious bony lesions. Visualized sinuses and mastoids appear unremarkable. 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 1.4 centimeter fluid collection in the anterior right laryngeal mucosa compatible with tissue necrosis. No lymphadenopathy based on size criteria. 8 millimeter short axis centrally necrotic left level 2 B neck lymph node noted. Metastatic lymphadenopathy not completely excluded. Dictated by: Jessica Hilario MD, PhD on 10/15/2023 at 16:20 Patient with clear improvement here. Nonetheless, he remains critically ill. He continues to be DNR/DNI. Consulting hospitalist to discuss admission. Hospitalist not comfortable to admit here. I spoke with [facility] ([place], [place]) [place]. They recommend [facility]. I am extremely worried about this patient's trajectory. He has had substantial improvement here, and I suspect his initial stridor was due to recently stopping his steroids with his underlying cancer and radiation likely causing associated edema and irritation. While he has improved, he is at substantial risk of decompensation, and if he worsens again he could very well asyphxiate and at home. In this setting, I strongly encouraged him to stay in the ER/in the hospital with potential for transfer for further care. However, he strictly declines this. He states he does not want to pursue more aggressive treatment and wants to be home, fully understanding he could . He fully understands this could be uncomfortable. He states he has sufficient narcotic medications at home and does not want more. He also states he has steroids that he can resume at home. I did involve social work. He declined hospice at this time. He does have a friend at bedside now however who has extensive ER nursing experienced in the past and will be there to help care for him. He demonstrates capacity consistently. In this setting, I am respecting his wishes and discharging and currently improving condition. He fully understands he can call 911 and return at any time should he choose to. Repeat exam and vital signs currently reassuring. Questions answered. Plan reviewed. Patient discharged in stable condition. CRITICAL CARE: I spent 65 minutes assessing, resuscitating, reassessing this patient, interpreting studies, speaking with family consultants, outside of procedures, in the setting of potential airway compromise in setting of laryngeal cancer. Orders Ordered: ED Orders 10/15/23 14:52 CBC Auto Diff [Complete Blood Count AUTO DIFF] Stat CMP [Comprehensive Metabolic Panel] Stat Magnesium Stat 10/15/23 14:58 XR soft tissue neck Stat 10/15/23 15:01 CT soft tissue neck w con Stat 10/15/23 15:26 XR chest 1V Stat 10/15/23 15:42 Blood Culture Stat 10/15/23 17:47 Consult to [facility] - Client Operations Manager Stat Discontinued Medications Albuterol/Ipratropium (Albuterol/Ipratropium 3 Ml Ampul) 3 ml INH Q1H PRN PRN Reason: Shortness Of Breath Last Admin: 10/15/23 15:16 Dose: 3 ml Documented By: PAM Dexamethasone (Dexamethasone 10 Mg/Ml Vial) 10 mg IV NOW ONE Stop: 10/15/23 14:57 Last Admin: 10/15/23 15:11 Dose: 10 mg Documented By: ANABEL Epinephrine (Racepinephrine 0.5 Ml Neb) 0.5 ml INH RTQ4HR PRN PRN Reason: Shortness Of Breath Last Admin: 10/15/23 16:58 Dose: 0.5 ml Documented By: Admin: 10/15/23 15:05 Dose: 0.5 ml Documented By: SAT Epinephrine (Racepinephrine 0.5 Ml Neb) 0.5 ml INH RTQ4HR PRN PRN Reason: Shortness Of Breath Piperacillin Sod/Tazobactam (Sod 4.5 gm/ Sodium Chloride) 100 mls @ 200 mls/hr IV NOW ONE Stop: 10/15/23 14:59 Last Infusion: 10/15/23 15:52 Dose: Infused Documented By: Admin: 10/15/23 15:20 Dose: 200 mls/hr Documented By: ANABEL Vancomycin HCl (Vancomycin) 1,000 mg in 200 mls @ 200 mls/hr IV Q8H JOSE Last Admin: 10/15/23 16:38 Dose: 200 mls/hr Documented By: EULALIO Vancomycin HCl (Vancomycin Per Pharmacy) 1 request MISC NOW ONE Stop: 10/15/23 16:31 Vancomycin HCl (Vancomycin Trough) 1 request MISC NOW ONE Stop: 10/16/23 16:31 Vancomycin HCl (Vancomycin Peak) 1 request MISC NOW ONE Stop: 10/16/23 19:01 Vital Signs Vital signs: Vital Signs - 8 hr 10/15/23 14:33 10/15/23 14:44 10/15/23 14:46 Temperature 99.4 F Pulse Rate 90 84 Respiratory Rate 18 17 Blood Pressure 118/63 121/70 Pulse Oximetry 97 96 Oxygen Delivery Method Room Air 10/15/23 14:46 10/15/23 14:52 10/15/23 14:52 Temperature Pulse Rate 82 82 Respiratory Rate 14 Blood Pressure 129/69 Pulse Oximetry 97 96 Oxygen Delivery Method 10/15/23 15:00 10/15/23 15:00 10/15/23 15:06 Temperature Pulse Rate 80 80 Respiratory Rate 22 16 Blood Pressure 142/78 H Pulse Oximetry 94 Oxygen Delivery Method Room Air 10/15/23 15:30 10/15/23 15:31 10/15/23 15:31 Temperature Pulse Rate 89 89 Respiratory Rate 23 22 Blood Pressure 146/67 H Pulse Oximetry 95 96 Oxygen Delivery Method 10/15/23 16:00 10/15/23 16:00 10/15/23 16:30 Temperature Pulse Rate 85 80 Respiratory Rate 25 H 21 Blood Pressure 147/76 H Pulse Oximetry 94 93 Oxygen Delivery Method 10/15/23 17:00 10/15/23 17:30 10/15/23 18:00 Temperature Pulse Rate 81 86 80 Respiratory Rate 16 15 26 H Blood Pressure Pulse Oximetry 94 96 94 Oxygen Delivery Method 10/15/23 18:30 10/15/23 18:47 10/15/23 18:47 Temperature Pulse Rate 79 71 Respiratory Rate 21 21 Blood Pressure 128/62 Pulse Oximetry 95 94 Oxygen Delivery Method 10/15/23 18:49 Temperature 97.8 F Pulse Rate Respiratory Rate Blood Pressure Pulse Oximetry Oxygen Delivery Method Medical Decision Making Lab Data 10/15/23 14:52 10/15/23 14:52 Labs: Lab Results 10/15/23 Range/Units 14:52 WBC 4.4 L (4.5-11.0) X10^3/uL RBC 3.63 L (4.5-5.9) X10^6/uL Hgb 11.2 L (13.5-17.5) g/dL Hct 32.7 L (41-53) % MCV 90.1 (80-100) fL MCH 30.9 (26-34) PG MCHC 34.3 (30-36) % RDW 13.2 (11.6-14.8) % Plt Count 115 L (150-400) X10^3/uL Neut % (Auto) 77.2 H (50-75) % Lymph % (Auto) 10.0 L (25-40) % [place] % (Auto) 11.4 (3-14) % Eos % (Auto) 0.5 L (2-4) % Baso % (Auto) 0.9 (0-2) % Neut # (Auto) 3400 (8159-1221) /uL Lymph # (Auto) 400 L (3283-2360) /uL [place] # (Auto) 500 (0-900) /uL Eos # (Auto) 0 (0-450) /uL Baso # (Auto) 0 (0-100) /uL Sodium 139 (137-145) mmol/L Potassium 4.3 (3.4-5.1) mmol/L Chloride 101 (98-107) mmol/L Carbon Dioxide 32 (22-32) mmol/L BUN 36 H (9-20) mg/dL Creatinine 0.66 (0.66-1.25) mg/dL Estimated GFR > 60 (>60) mL/min BUN/Creatinine Ratio 54.5 H (6-22) Glucose 196 H D (80-110) mg/dL Calcium 8.7 (8.4-10.2) mg/dL Magnesium 1.6 (1.6-2.3) mg/dL Total Bilirubin 0.8 (0.2-1.3) mg/dL AST 25 (17-59) IU/L ALT 24 (<50) IU/L Alkaline Phosphatase 114 (38-126) U/L Total Protein 6.6 (6.3-8.2) g/dL Albumin 3.4 L (3.5-5.0) g/dL Globulin 3.2 (1.7-4.1) g/dL Albumin/Globulin Ratio 1.1 (1.0-2.8) Discharge Plan Departure Patient Disposition: Home Clinical Impression: Inspiratory stridor Instructions: Laryngeal Cancer Activity Restrictions/Additional Instructions: It was a pleasure taking care of you today. It is important to fully read and understand the below. Please ask us if you have any questions. We think the most likely cause of your symptoms is your cancer, with lack of steroids recently likely contributing. You fully understand your extremely high risk of worsening, suffocation, and discomfort at home. We are always here to help you if you change your mind. If not, please see your outpatient team as soon as possible, ideally tomorrow. Please take your steroids again consistently. No tests or assessments are perfect, and your condition could change number operator time. If your symptoms change or worsen, and you want more help, it is very important you immediately seek medical care. If you want more help, and you have any new or worsening pain, recurrent fever, difficulty speaking, voice changes, difficulty opening and closing your mouth, drooling, shortness of breath, lightheadedness or passing out, confusion, numbness, weakness, recurrent vomiting, spreading rash or swelling, or anything else that concerns you, please immediately seek medical care. If you have been prescribed any medications: please read the drug package inserts on how to properly use the medication and any potential side effects. If you had labs (blood tests) or imaging (CT scan or x-rays) done during your visit: please follow up on the results of these with your primary care doctor, as discussed. In addition, please know the results we received today may be preliminary. Our usual practice is to follow up on tests within a few days of a patient's discharge from the Emergency Department and notify you of any changes. These may lead to changes to your treatment plan. However, the best way to obtain and interpret these test results is through your Primary Care Provider. If you need to update your contact information, please stop by the front sight attacher and alert the Registration personnel before you leave the Emergency Department. Thank you for the opportunity to participate in your healthcare. We are always here and happy to see you in the future. Prescriptions: No Action (DME) glucometer See Rx Instructions .Route .MEDSUPPLY Qty: 1 0RF Rx Instructions: As directed hydroxyzine HCl 25 mg tablet See Rx Instructions .ROUTE .COMPLEX Qty: 60 0RF Dose Instruction: TAKE 1 TABLET BY MOUTH TWICE DAILY NEEDED FOR ANXIETY Rx Instructions: TAKE 1 TABLET BY MOUTH TWICE DAILY NEEDED FOR ANXIETY atorvastatin [Lipitor] 40 mg tablet 40 mg PO BEDTIME Qty: 90 2RF mirtazapine [Remeron] 15 mg tablet 15 mg PO BEDTIME Qty: 60 2RF metformin 1,000 mg tablet See Rx Instructions .ROUTE .COMPLEX Qty: 180 3RF Dose Instruction: TAKE 1 TABLET DAILY FOR 1 WEEK THEN INCREASE TO 2 TABLETS DAILY WITH FOOD. Rx Instructions: 2 TABLETS DAILY WITH FOOD. (DME) True Metrix Glucose Test Strip Strip See Rx Instructions .ROUTE .COMPLEX Qty: 100 0RF Dose Instruction: use 1 TEST STRIP to TEST BLOOD SUGAR once daily Rx Instructions: use 1 TEST STRIP to TEST BLOOD SUGAR once daily (DME) lancets [TRUEplus Lancets] 33 gauge misc See Rx Instructions .ROUTE .COMPLEX Qty: 100 5RF Dose Instruction: use 1 LANCET to TEST BLOOD SUGAR once daily Rx Instructions: use 1 LANCET to TEST BLOOD SUGAR once daily losartan 50 mg tablet See Rx Instructions .ROUTE .COMPLEX Qty: 180 3RF Dose Instruction: TAKE 1 TABLET BY MOUTH DAILY. Rx Instructions: TAKE 2 TABLETs BY MOUTH DAILY. spironolactone 50 mg tablet 50 mg PO DAILY Rybelsus 7 mg tablet 7 mg PO DAILY Qty: 90 3RF Rx Instructions: A1c not completely managed with current meds. Referrals: Robert Harkins MD [Primary Care Provider] - Stand Alone Forms: Patient Portal/API
--- NOTE | 2023-10-15 15:26 | DI.RAD.S_ITS ---
PROCEDURE: XR CHEST 1V INDICATIONS: respiratory distress TECHNIQUE: One view of the chest was acquired. COMPARISON: None. FINDINGS: Surgical changes and devices: None. Lungs and pleura: Lungs are clear. No pleural effusions or pneumothorax. Mediastinum: Mediastinal contours appear normal. Heart size is normal. Bones and chest wall: No suspicious bony lesions. Overlying soft tissues appear unremarkable. IMPRESSION: No acute cardiopulmonary abnormality is seen. Dictated by: Jessica Hilario MD, PhD on 10/15/2023 at 15:55 Approved by: Jessica Hilario MD, PhD on 10/15/2023 at 15:56
--- NOTE | 2023-10-15 15:45 | PC.NURSE ---
Pt states that he has lost weight over the past 2 weeks. Pt states he has been unable to eat or drink water due to throat pain. Pt states he was dx w/ cancer at end of last year. Pt presents with stridor. GCS 15.
[2023-10-15] MEDS: VANCOMYCIN 1,000 MG/200 ML PIGGYBACK 200 MG IV (16:38)
--- NOTE | 2023-10-15 17:50 | PC.NURSE ---
RN went to update pt and friend about plan of care. When RN updated pt that the plan is to transfer to another hospital for higher level of care, pt stated that he wants to go home. RN explained that due to pt's acute condition, he would benefit from a higher level of care, but that she would update Doctor about his wishes. RN updated Dr. Wheat, TOOL DRAWING CHECKER consult placed.
[2023-10-15 18:11] LABS: Magnesium 1.6 mg/dL (1.6-2.3)
--- NOTE | 2023-10-15 18:22 | PC.NURSE ---
spoke to Marie at [facility] pt is waitlisted there. Marie stated probably no bed until tomorrow it's getting pretty tight spoke to Lucy at [facility] who said they have no ENT surgeon to call around and give them a call back spoke to Kathy at [facility]. Kathy called back and spoke to Dr. Elaine spoke to Sheila at [facility] who said to call around or call back after 1900 spoke to Ramón who said they are currently full spoke to Catrina at [facility] who asked What's going on with the pt gave her pt diagnosis Catrina then said Why would you transfer the pt here if they get all their care at [facility] explained to Catrina what Lucy said. Catrina then said No availability
--- NOTE | 2023-10-15 18:28 | PC.NURSE ---
Pt expressed wishes to go home after MD and social work talked with pt pt stated he is okay with transferring to another hospital and stated he was confused on the plan. Pt breathing improved. pt appears comfortable and denies any complaints.
--- NOTE | 2023-10-15 18:38 | CM.SWNOTE ---
ED SENIOR RISK ANALYST Note SENIOR RISK ANALYST receives consult due to concern for patient wanting to d/c to home when ED provider recommends transfer to higher level of care. Patient is 58 y/o male who presents to the ED due to concern for SOB, sent by oncology clinic after radiation tx. Patient has dx of SCC supraglottic laryngeal cancer. Patient's Oncologist is Dr. Ellis in [place]. ED provider reports concerns for recommendations for ENT and trach but patient declines. Patient's PCP is Dr. Harkins, Patient has [facility] [employer] Medicaid insurance. Patient is DNR/DNI. Patient has hx of hyperglycemia, hyperlipidemia, proteinuria, and hypertension. SENIOR RISK ANALYST enters room to meet with patient. Patient presents as A/Ox4. Present in room is patient's family/friend who resides with patient. It is reported that she is a retired ED nurse of 45 years. SENIOR RISK ANALYST discusses ED providers recommendations and initially patient agrees to stay in ED and await transfer and then later informs RN that he prefers to go home. SENIOR RISK ANALYST offers hospice to patient and patient declines and states he is not ready for hospice and wants to go home. SENIOR RISK ANALYST encourages patient f/u with his oncologist to discuss further treatment options. Plan: patient to d/c to home per patient preference with patient's family member, patient to f/u with oncology NURIS Garcia
== END 2023-10-15 18:50 | disposition home or self-care (01) ==
PROVIDERS: Emergency Provider Emergency Medicine; PCP Family Medicine
DX: C32.9 Malignant neoplasm of larynx, unspecified (principal); R06.1 Stridor; Z79.899 Other long term (current) drug therapy
CPT/HCPCS: 36415; 70360; 70491; 71045; 80053; 83735; 85025; 87040; 94640; 96365; 96367; 96368; 96375; 99284; J1100; J2543; Q9967